=== PATIENT | female | born 2000 | race Two or more races ===

== ENCOUNTER 2022-07-01 07:54 | Emergency (ER) | payer OTHER ==
[~2022-07-01] VITALS: Ht 167.6 cm; Wt 115.0 kg
[2022-07-01 12:01] VITALS: BP 102/53
[2022-07-01] MEDS ORDERED: ERY05OO OP (12:07)
[2022-07-01] MEDS ORDERED: IBUP800T27 PO (12:07)
== END 2022-07-01 12:45 | disposition home or self-care (01) ==
LOC: ER 07:54
DX: S82.301A Unspecified fracture of lower end of right tibia, initial encounter for closed fracture (principal); H10.9 Unspecified conjunctivitis; W05.1XXA Fall from non-moving nonmotorized scooter, initial encounter; Y93.89 Activity, other specified; Y92.89 Other specified places as the place of occurrence of the external cause; Y99.8 Other external cause status
CPT/HCPCS: 29515; 73610

== ENCOUNTER 2024-09-30 16:23 | Emergency (ER) | payer OTHER ==
[~2024-09-30] VITALS: Ht 167.6 cm; Wt 104.0 kg
[~2024-09-30 16:23] MED LIST: ERY05OO OP; IBUP-1456 PO
[2024-09-30] MEDS: IBUPROFEN 600 MG TAB PO ONE (16:52)
[2024-09-30] MEDS ORDERED: OSEL75CA5 PO (19:18)
--- NOTE | 2024-09-30 19:18 | ED.PDOC ---
SOB-HPI HPI Comments This is a 24-year-old female presents to the ED chief complaint flu-like s ymptoms x3 days. Patient complaining of sore throat, cough, body aches, nasal congestion, fevers, chills, headache, and 1 episode of vomiting taking DayQuil and NyQuil with some relief. Denies difficulty breathing, shortness of breath, chest pain, numbness or weakness. Chief Complaint: Flu like Time Seen by MD: 18:05 Primary Care Provider: ONEL Reviewed notes: Nurses Notes, Medications, Allergies Information Source: Patient Mode of Arrival: Ambulatory Past Medical History PAST MEDICAL HISTORY: Denies Surgical History: Denies all surgeries ROAD TEST EXAMINER History: No Pertinent ROAD TEST EXAMINER History Family History Family History: Reviewed,noncontributory to illness, Unknown Social History Smoker: Non-Smoker Alcohol: Denies ETOH Use Drugs: Denies Drug Use Lives In: Home Constitutional: reports: chills, fatigue, fever; denies: diaphoresis, malaise, sweats, weakness, others EENTM: reports: nasal discharge, throat pain; denies: blurred vision, double vision, ear bleeding, ear discharge, ear drainage, ear pain, ear ringing, eye pain, eye redness, hearing loss, mouth pain, mouth swelling, nose bleeding, nose congestion, nose pain, photophobia, tearing, throat swelling, voice changes, others Respiratory: reports: cough; denies: hemoptysis, orthopnea, SOB at rest, s hortness of breath, SOB with excertion, stridor, wheezing, others Cardiovascular: denies: chest pain, dizzy spells, diaphoresis, Dyspnea on exertion, edema, irregular heart beat, left arm pain, lightheadedness, palpitations, PND, syncope, others Gastrointestinal: reports: vomiting; denies: abdomen distended, abdominal pain, blood streaked bowels, constipated, diarrhea, dysphagia, difficulty swallowing, hematemesis, melena, nausea, poor appetite, poor fluid intake, rectal bleeding, rectal pain, others Genitourinary: denies: abnormal vagina bleeding, burning, dyspareunia, dysuria, flank pain, frequency, hematuria, incontinence, pain, , vagina discharge, urgency, others Neurological: reports: headache; denies: dizziness, fainting, left sided numbness, left sided weakness, numbness, paresthesia, pre-existing deficit, right sided numbness, right sided weakness, seizure, speech problems, tingling, tremors, weakness, others Musculoskeletal: denies: back pain, gout, joint pain, joint swelling, muscle pain, muscle stiffness, neck pain, others Integumetry: denies: bruises, change in color, change in hair/nails, dryness, laceration, lesions, lumps, rash, wounds, others Allergic/Immunocompromised: denies: Difficulty Healing, Frequent Infections, Hives, Itching, others Hematologic/Lymphatic: denies: anemia, blood clots, easy bleeding, easy bruising, swollen glands, others Endocrine: denies: excessive hunger, excessive sweating, excessive thirst, excessive urination, flushing, intolerance to cold, intolerance to heat, unexplained weight gain, unexplained weight loss, others Psychiatric: denies: anxiety, bipolar disorder, depression, hopeless, panic disorder, schizophrenia, sleepless, suicidal, others Physical Exam General Appearance: No Apparent Distress, Normal HEENT: Pharyngeal Erythema, TMs Normal, Other (Clear nasal drainage bilateral nares) Neck: Full Range of Motion, Non-Tender Respiratory: Lungs Clear, No Accessory Muscle Use, No Respiratory Distress, Normal Breath Sounds Cardiovascular: No Edema, No JVD, No Murmur, No Gallop, Normal Peripheral Pulses, Regular Rate/Rhythm Breast Exam: Deferred Gastrointestinal: No Organomegaly, Non Tender, No Pulsatile Mass, Normal Bowel Sounds, Soft Genitalia: Deferred Pelvic: Deferred Rectal: Deferred Extremities: Normal capillary refill, Normal inspection, Normal range of motion, Non-tender, No pedal edema Musculoskeletal : Apperance: Normal Neurologic: Alert, jelly filter tender II-XII nml as Tested, No Motor Deficits, Normal Affect, Normal Mood, No Sensory Deficits Cerebellar Function: Normal Reflexes: Normal Skin: Dry, Normal Color, Warm Lymphatic: No Adenopathy Was a procedure done? Was a procedure done?: No Differential Dx Differential Diagnosis: Pneumonia X-Ray, Labs, Meds, VS Vital Signs Date Time Temp Pulse Resp B/P (MAP) Pulse Ox O2 Delivery O2 Flow Rate FiO2 09/30/24 19:32 99.4 98 17 121/82 (95) 97 99.4 09/30/24 18:43 100.5 125 16 154/105 (121) 95 100.5 09/30/24 18:43 125 16 95 Room Air 09/30/24 16:52 100.8 125 16 154/105 (121) 95 09/30/24 16:52 100.8 Current Medications Medications (Trade) Dose Ordered Sig/Kamlesh Route Start Time Stop Time Status Last Admin Ibuprofen (Motrin Tablet) 600 mg ONCE ONCE PO 09/30/24 17:00 09/30/24 17:01 DC 09/30/24 16:52 X-Ray, Labs, Meds, VS Comment Influenza patient refused to be swabbed. Trial Tamiflu twice daily x5 days advised to continue with the DayQuil NyQuil as needed for symptom relief fevers. Advised to rest increase p.o. fluids with electrolytes follow up with your PCP in 2-3 days as necessary ER return precautions given patient indicated understanding and agrees with discharge plan of care Time of 1ST Reevaluation: 19:16 Reevaluation 1ST: Unchanged Patient Education/Counseling: Diagnosis, Treatment Family Education/Counseling: Diagnosis, Treatment, Prognosis, Need For Follow Up Departure 1 Departure Time of Disposition: 19:16 Impression: Primary Impression: Influenza Disposition: 01 HOME / SELF CARE / HOMELESS Condition: Stable e-Prescriptions Oseltamivir Phosphate (Tamiflu) 75 Mg Cap 1 CAP PO BID for 5 Days, #10 CAP Prov: JEFRY COURTNEY 09/30/24 Discharged With: Self Critical Care Note Critical Care Time?: No Stability Stability form required: No Heart Score Heart Score: Heart Score Response (Comments) Value History N/A 0 EKG N/A 0 Age <45 0 Risk Factors N/A 0 Troponin N/A 0 Total 0 JEFRY COURTNEY Sep 30, 2024 19:18
[2024-09-30 19:32] VITALS: BP 121/82; PULSE 98; RESP 17; TEMP 99.4; O2SAT 97
== END 2024-09-30 19:39 | disposition home or self-care (01) ==
LOC: ER 16:27
DX: J11.1 Influenza due to unidentified influenza virus with other respiratory manifestations (principal)